=== PATIENT | male | born 1995 | race Caucasian/White ===

== ENCOUNTER → 2017-02-07 | Outpatient (CLI) | payer OTHER ==
--- NOTE | 2017-02-08 09:33 | Diagnostic Imaging Report ---
PROCEDURE: MR imaging left lower extremity without contrast. TECHNIQUE: Multiplanar, multisequence non contrast enhanced MR imaging of the left lower extremity was accomplished. INDICATION: History of fracture of the left foot two years ago. Now having a lump along the top aspect of the foot at the site of marker. EXAMINATION: MRI of the left foot without contrast 02/07/2017. FINDINGS: Multiplanar multisequence MRI of the left foot is performed. There is a marker at the site of concern. This overlies the proximal first and second metatarsal interspace. Underlying the marker there is a large cystic collection difficult to measure due to its extent. Its largest dorsal component measures 1.3 x 3.0 x 1.7 cm in size and lies along the dorsum of the foot immediately inferior to the marker. This appears to then extend proximally possibly connecting with cystic changes in the interspace between the medial and mid cuneiforms and the adjacent first and second metatarsals. A large complex cystic area is then noted towards the plantar aspect of the foot underlying these tarsal/ metatarsal joint spaces. This area measures approximately 3.2 x 2.5 x 2.0 cm. A second similar lesion which likely is contiguous with this larger focus is noted more medially within the foot immediately plantar to the proximal aspect of the first metatarsal. This measures 1.9 cm in greatest dimension. All of these lesions contain multiple internal septations but are predominantly T2 hyperintense and T1 isointense to muscle. These appear to surround the Lisfranc ligament, but the ligament itself is intact. There may be mild subchondral cystic change involving the base of the second metatarsal with edema in the base of the second metatarsal and first metatarsal. Mild edema is seen in the mid first metatarsal as well. There is edema within the medial most and mid cuneiforms. The remaining visualized osseous structures appear unremarkable. Visualized tendons are intact. IMPRESSION: Nonspecific complex septated cystic collection at the site of concern which appears to be centered at the first and second tarsometatarsal joint spaces. This most likely represents one large contiguous lesion with multiple internal septations. This is nonspecific at this time. This could represent a large complex ganglion with a giant cell tumor or nerve sheath tumor/neurofibroma not excluded. Given possible involvement of the adjacent osseous structures and edema, postcontrast imaging is recommended for further characterization and to help exclude a more aggressive lesion. Dictated by: Dictated on workstation # [id number]
== END ==
LOC: RAD 14:00
PROVIDERS: ATTEND Podiatrist Foot & Ankle Surgery
DX: M79.9 Soft tissue disorder, unspecified (principal)

== ENCOUNTER 2017-04-17 10:44 | Outpatient (CLI) | payer OTHER ==
[~2017-04-17] VITALS: Ht 175.3 cm; Wt 88.6 kg
[2017-04-17 10:57] VITALS: BP 114/74
== END 2017-04-17 13:55 ==
LOC: PREOP 10:44
PROVIDERS: ATTEND Podiatrist Foot & Ankle Surgery
DX: Z01.818 Encounter for other preprocedural examination (principal); Z11.2 Encounter for screening for other bacterial diseases; L98.9 Disorder of the skin and subcutaneous tissue, unspecified
CPT/HCPCS: 87081

== ENCOUNTER 2017-05-10 10:45 | Day surgery (SDC) | payer OTHER ==
[~2017-05-10] VITALS: Ht 175.3 cm; Wt 88.6 kg
[2017-05-10] MEDS ORDERED: ceFAZolin 1,000 MG (ANCEF) VIAL ONE (10:47)
[2017-05-10] MEDS ORDERED: NS (IVPB) 50 ML ONE (10:47)
[2017-05-10] MEDS ORDERED: CATHETER FLUSH 10 ML SYR IV PRN (11:00)
[2017-05-10] MEDS ORDERED: ceFAZolin 1 GM/NS 50 ML IVPB IV ONE ×2 (11:00)
[2017-05-10 11:16] VITALS: BP 126/81
[2017-05-10] MEDS ORDERED: BUPIVACAINE 0.5% 30 ML (SENSORCAINE) VIAL ONE (12:31)
[2017-05-10] MEDS ORDERED: LIDOCAINE 1% INJ 20 ML (XYLOCAINE) VIAL ONE (12:31)
--- NOTE | 2017-05-10 12:50 | Progress Note-Pre Operative ---
Pre-Operative Progress Note H&P Reviewed The H&P was reviewed, patient examined and no changes noted. Date Seen by Provider: May 10, 2017 Time Seen by Provider: 12:49 Date H&P Reviewed: May 10, 2017 Time H&P Reviewed: 12:50 Pre-Operative Diagnosis: Soft Tissue Mass left foot SHRAVAN OBRIEN DPM May 10, 2017 12:50 pm
[2017-05-10] MEDS ORDERED: fentaNYL INJECTION 100 MCG/2 ML AMP ONE (12:56)
[2017-05-10] MEDS ORDERED: proPOfol 200 MG/20 ML (DIPRIVAN) VIAL IV ONE ×2 (12:56→13:17)
[2017-05-10] MEDS ORDERED: MIDAZOLAM 2 MG/2 ML (VERSED) VIAL ONE (12:57)
[2017-05-10] MEDS ORDERED: SEVOFLURANE (ULTANE) 15 ML INHAL SOLN ONE ×9 (13:02→14:35)
[2017-05-10] MEDS ORDERED: ONDANSETRON 4 MG/2 ML (SDV) Z0FRAN ONE (13:03)
[2017-05-10] MEDS ORDERED: DEXAMETHASONE PF 10 MG/ML (DECADRON) VIAL ONE (13:03)
[2017-05-10] MEDS ORDERED: LACTATED RINGERS 1,000 ML IV PRN (13:08)
[2017-05-10] MEDS ORDERED: LACTATED RINGERS 1,000 ML IV ONE (14:13)
--- NOTE | 2017-05-10 15:13 | Progress Note-Post Operative ---
Post-Operative Progess Note Surgeon (s)/Member Services Coordinator (s) Surgeon SHRAVAN OBRIEN DPM Member Services Coordinator: none Pre-Operative Diagnosis Soft Tissue Mass left foot Post-Operative Diagnosis same Procedure & Operative Findings Date of Procedure 05/10/17 Procedure Performed/Findings Excision of Soft tissue lesions left Anesthesia Type General Estimated Blood Loss Estimated blood loss (mL): Minimal Specimens/Packing Specimens Removed two from the dorsum and medial left foot, soft tissue. Packing: none SHRAVAN OBRIEN DPM May 10, 2017 3:13 pm
[2017-05-10] MEDS ORDERED: morphine INJ 10 MG/ML 1ML (SYR OR VIAL) IVP PRN (15:15)
[2017-05-10] MEDS ORDERED: ONDANSETRON 4 MG/2 ML (SDV) Z0FRAN IVP PRN ×2 (15:15→15:30)
[2017-05-10] MEDS ORDERED: LACTATED RINGERS 1,000 ML IV SCH (15:18)
[2017-05-10] MEDS ORDERED: HYDR-3812 PO (15:21)
[2017-05-10] MEDS ORDERED: HYDROcodone/APAP 5 MG/325 MG (LORTAB) TAB PO PRN (15:30)
[2017-05-10] MEDS ORDERED: HYDROcodone/APAP 5 MG/325 MG (LORTAB) TAB ONE (15:52)
[2017-05-10 15:55] VITALS: BP 131/99
[2017-05-10 16:25] VITALS: BP 128/91
[2017-05-10 16:55] VITALS: BP 124/80
[2017-05-10 17:05] VITALS: BP 124/80
--- NOTE | 2017-05-12 09:31 | OPERATIVE REPORT ---
PROCEDURE PHYSICIAN: RESHMA OBRIEN DATE OF PROCEDURE: 05/10/2017 SURGEON: Reshma Obrien DPM. PREOPERATIVE DIAGNOSIS: Soft tissue lesions of the left foot. POSTOPERATIVE DIAGNOSIS: Soft tissue lesions of the left foot. PROCEDURE: Excision of soft tissue lesions, left foot x 2. WOUND CLASS: Clean. ANESTHESIA: General. HEMOSTASIS: Pneumatic thigh tourniquet at 250 mmHg. INDICATION: This 21-year-old male presents complaining of painful growth to the top and bottom of the left foot. Conservative therapy is met with unsatisfactory results and the patient is agreeable to surgical intervention after risk and complications were discussed at length. No guarantees were extended to the patient and he is willing to proceed. PROCEDURE: The patient was brought back to the operating table, placed in a secure, supine position. General anesthetic was induced. Appropriate timeout was performed. A pneumatic thigh tourniquet was placed on the left lower extremity over several layers of padding. The left foot was then prepped and draped in normal sterile manner. The left foot was then elevated and allowed to exsanguinate after which the tourniquet was inflated to 250 mmHg. Attention was then directed to the dorsal aspect of the left foot where a 7 cm longitudinal linear incision was created overlying the medial cuneiform and into the first intermetatarsal space. The incision was deepened in the same plane with great care to identify and retract all vital neurovascular structures. Only necessary blood vessels were cauterized as encountered. Careful soft tissue dissection was carried out to deep fascia. The peroneal nerve was retracted laterally. A white lobulated lesion was identified to the first intermetatarsal space and then extending into the cuneiform area. Careful dissection was carried out and extended into the plantar aspect of the first intermetatarsal area. The lesion measured approximately a 3 cm in length. The wound was flushed with copious amounts of normal saline. No other abnormalities were identified at this point. A second incision was created to the medial aspect of the first metatarsal base where a 5 cm longitudinal linear incision was created. Blunt dissection was carried out through the deep fascia. The abductor muscle belly was dissected plantarly and below this was a white lobulated mass that was dissected free of its soft tissue attachments just inferior to the first metatarsal base and it measured 2 cm in length. The tourniquet was released. No active bleeders were identified to either wound. The wounds were flushed with copious amounts of normal saline and closure was then performed in layers. Deep closure was performed with 3-0 Vicryl, superficial with 4-0 Vicryl, skin closure with 4-0 Prolene in a horizontal mattress type stitch. Postoperative injection consisted of 20 mL of 0.5% Marcaine injected in a local infusion to the surgical sites. Postoperative dressing consisted of Betadine soaked Adaptic, sterile 4 x 4, sterile Kerlix, all secured with a Coban wrap. The patient tolerated the anesthesia and procedure well and was transported from the operating room to the recovery area with vital signs stable and vascular status intact to all digits of the left foot. Postoperative instructions were dispensed to the patient. He is to be nonweightbearing on the left foot. We will see the patient back in the office in 10 days period of time or sooner if necessary. Job ID: [id number] Dictated Date: 05/10/2017 15:18:23 Air Filler Date: 05/12/2017 09:16:01 / julissa
== END 2017-05-10 17:05 | disposition home or self-care (01) ==
LOC: SDC 10:45
PROVIDERS: ATTEND Podiatrist Foot & Ankle Surgery
DX: D16.32 Benign neoplasm of short bones of left lower limb (principal)
CPT/HCPCS: 88305

== ENCOUNTER 2021-10-06 20:16 | Emergency (ER) | payer BC, OTHER ==
[~2021-10-06] VITALS: Ht 175 cm; Wt 93.0 kg
[~2021-10-06 20:16] MED LIST: ACHD5005 PO
[2021-10-06] MEDS ORDERED: ONDA4TAB11 PO (20:45)
[2021-10-06] MEDS ORDERED: LIDOCAINE 2% VISCOUS 15 ML UDC PO ONE (20:45)
[2021-10-06] MEDS ORDERED: ANTACID SUSP 30 ML UDC (MYLANTA) PO ONE (20:45)
[2021-10-06] MEDS ORDERED: KETOROLAC 30 MG/ML VIAL IVP ONE (20:45)
[2021-10-06] MEDS ORDERED: PANTOPRAZOLE 40 MG (PROTONIX) VIAL IV ONE (20:45)
[2021-10-06] MEDS ORDERED: ONDANSETRON 4 MG/2 ML (SDV) Z0FRAN IVP ONE (20:45)
--- NOTE | 2021-10-06 20:45 | ED GI ---
General Chief Complaint: Abdominal/GI Problems Stated Complaint: ABD PAIN Source of Information: Patient Exam Limitations: No Limitations History of Present Illness Date Seen by Provider: Oct 06, 2021 Time Seen by Provider: 20:16 Initial Comments Patient ER by private conveyance from home with chief complaint of epigastric brayden pain since about 4:00 when he started having some discomfort nausea vomiting. About a 7 out of 10 now. No previous history of surgery or trauma. He ate a homemade tuna sandwich at noon. Nobody else ate it with him. Started getting sick and then started vomiting copiously after 4. Not having any nausea now. Has not taken anything for the pain. Just does not feel well. No diarrhe a. No significant medical history. No fevers chills cough shortness of air. Allergies and Home Medications Allergies Coded Allergies: No Known Drug Allergies (Unverified , 04/17/17) Patient Home Medication List Home Medication List Reviewed: Yes Hydrocodone Bit/Acetaminophen (Lortab 5 Mg Tablet) 1 Each Tablet, 1-2 TAB PO Q4-6HR PRN for PAIN Prescribed by: SHRAVAN OBRIEN on 05/10/17 1521 Ondansetron (Ondansetron Odt) 4 Mg Tab.rapdis, 4-8 MG PO Q6H PRN for NAUSEA/VOMITING Prescribed by: VIOLETA MORENO on 10/06/212044 Review of Systems Review of Systems Constitutional: No chills, No fever, No malaise EENTM: No Blurred Vision, No Double Vision Respiratory: Denies Cough, Denies Shortness of Air Cardiovascular: Denies Chest Pain, Denies Lightheadedness Gastrointestinal: See HPI, Abdominal Pain; Denies Constipated, Denies Diarrhea; Nausea, Poor Fluid Intake, Vomiting Genitourinary: Denies Burning, Denies Discharge Musculoskeletal: No back pain, No joint pain Skin: No pruritus, No rash Psychiatric/Neurological: Denies Headache, Denies Numbness All Other Systems Reviewed Negative Unless Noted: Yes Past Frhlhsl-Nbmmuj-Tihqzy Hx Patient Social History Tobacco Use?: No Use of E-Cig and/or Vaping dev: No Seasonal Allergies Seasonal Allergies: No Past Medical History Reproductive Disorders: No Sexually Transmitted Disease: No HIV/AIDS: No Loss of Vision: Denies Hearing Impairment: Denies Anxiety Adverse Reaction/Blood Tranf: No (N/A) Physical Exam Vital Signs Vital Signs - First Documented 10/06/21 20:23 Temp 36.5 Pulse 59 Resp 16 B/P (MAP) 144/107 (119) Pulse Ox 97 O2 Delivery Room Air Capillary Refill : Height/Weight/BMI Height: 5'9.00" Weight: 195lbs. 4.0oz. [id number]; 28.8 BMI Method: General Appearance: WD/WN, no apparent distress HEENT: PERRL/EOMI, TMs normal, pharynx normal Neck: full range of motion, normal inspection Respiratory: lungs clear, normal breath sounds, no respiratory distress, no accessory muscle use Cardiovascular: normal peripheral pulses, regular rate, rhythm Gastrointestinal: normal bowel sounds, soft, no organomegaly, tenderness (Epigastric), other (No mesenteric signs negative Rovsing or McBurney's point rebound tenderness) Extremities: normal range of motion, normal inspection, normal capillary refill Neurologic/Psychiatric: alert, normal mood/affect, oriented x 3 Skin: normal color, warm/dry Progress/Results/Core Measures Results/Orders Lab Results Laboratory Tests Test 10/06/21 20:25 10/06/21 20:55 Range/Units Urine Color YELLOW Urine Clarity CLEAR Urine pH 6.0 5-9 Urine Specific [place] >=1.030 1.016-1.022 Urine Protein NEGATIVE NEGATIVE Urine Glucose (UA) NEGATIVE NEGATIVE Urine Ketones 3+ H NEGATIVE Urine Nitrite NEGATIVE NEGATIVE Urine Bilirubin NEGATIVE NEGATIVE Urine Urobilinogen 0.2 < = 1.0 MG/DL Urine Leukocyte Esterase NEGATIVE NEGATIVE Urine RBC (Auto) NEGATIVE NEGATIVE Urine RBC NONE /HPF Urine WBC NONE /HPF Urine Crystals PRESENT H /LPF Urine Amorphous Sediment FEW RACIEL URATES H /LPF Urine Bacteria NEGATIVE /HPF Urine Casts NONE /LPF Urine Mucus NEGATIVE /LPF Urine Culture Indicated NO White Blood Count 10.6 4.3-11.0 10^3/uL Red Blood Count 5.63 H 4.30-5.52 10^6/uL Hemoglobin 16.5 13.3-17.7 g/dL Hematocrit 48 40-54 % Mean Corpuscular Volume 85 80-99 fL Mean Corpuscular Hemoglobin 29 25-34 pg Mean Corpuscular Hemoglobin Concent 35 32-36 g/dL Red Cell Distribution Width 11.9 10.0-14.5 % Platelet Count 312 130-400 10^3/uL Mean Platelet Volume 9.7 9.0-12.2 fL Immature Granulocyte % (Auto) 0 % Neutrophils (%) (Auto) 89 H 42-75 % Lymphocytes (%) (Auto) 7 L 12-44 % Monocytes (%) (Auto) 4 0-12 % Eosinophils (%) (Auto) 0 0-10 % Basophils (%) (Auto) 0 0-10 % Neutrophils # (Auto) 9.4 H 1.8-7.8 10^3/uL Lymphocytes # (Auto) 0.7 L 1.0-4.0 10^3/uL Monocytes # (Auto) 0.4 0.0-1.0 10^3/uL Eosinophils # (Auto) 0.0 0.0-0.3 10^3/uL Basophils # (Auto) 0.0 0.0-0.1 10^3/uL Immature Granulocyte # (Auto) 0.0 0.0-0.1 10^3/uL Sodium Level 137 135-145 MMOL/L Potassium Level 3.4 L 3.6-5.0 MMOL/L Chloride Level 102 98-107 MMOL/L Carbon Dioxide Level 20 L 21-32 MMOL/L Anion Gap 15 H 5-14 MMOL/L Blood Urea Nitrogen 21 H 7-18 MG/DL Creatinine 1.02 0.60-1.30 MG/DL Estimat Glomerular Filtration Rate 88 BUN/Creatinine Ratio 21 Glucose Level 111 H 70-105 MG/DL Calcium Level 9.3 8.5-10.1 MG/DL Corrected Calcium 8.5-10.1 MG/DL Total Bilirubin 1.4 H 0.1-1.0 MG/DL Aspartate Amino Transf (AST/SGOT) 28 5-34 U/L Alanine Aminotransferase (ALT/SGPT) 41 0-55 U/L Alkaline Phosphatase 43 40-136 U/L Total Protein 7.8 6.4-8.2 GM/DL Albumin 4.9 H 3.2-4.5 GM/DL Lipase 19 8-78 U/L My Orders Orders - VIOLETA MORENO Ketorolac Injection (Toradol Injection) (10/06/21 20:45) Ondansetron Injection (Zofran Injectio (10/06/21 20:45) Pantoprazole Injection (Protonix Injecti (10/06/21 20:45) Lidocaine 2% Viscous 15 Ml (Xylocaine Vi (10/06/21 20:45) Antacid Suspension (Mylanta Suspension (10/06/21 20:45) Ed Iv/Invasive Line Start (10/06/21 20:46) Ns Iv 1000 Ml (Sodium Chloride 0.9%) (10/06/21 21:00) Cbc With Automated Diff (10/06/21 21:28) Comprehensive Metabolic Panel (10/06/21 21:28) Lipase (10/06/21 21:28) Ua Culture If Indicated (10/06/21 21:28) Morphine Injection (Morphine Injection (10/06/21 21:28) Manual Differential (10/06/21 20:55) Medications Given in ED Current Medications Medications Dose Ordered Sig/Yodit Route Start Time Stop Time Status Last Admin Dose Admin Al Hydrox/Mg Hydrox/Simethicone 30 ml ONCE ONCE PO 10/06/21 20:45 10/06/21 20:46 DC 10/06/21 20:56 30 ML Ketorolac Tromethamine 30 mg ONCE ONCE IVP 10/06/21 20:45 10/06/21 20:46 DC 10/06/21 20:57 30 MG Lidocaine HCl 15 ml ONCE ONCE PO 10/06/21 20:45 10/06/21 20:46 DC 10/06/21 20:56 15 ML Ondansetron HCl 4 mg ONCE ONCE IVP 10/06/21 20:45 10/06/21 20:46 DC 10/06/21 20:57 4 MG Pantoprazole 40 mg ONCE ONCE IV 10/06/21 20:45 10/06/21 20:46 DC 10/06/21 20:56 40 MG Vital Signs/I&O 10/06/21 20:23 Temp 36.5 Pulse 59 Resp 16 B/P (MAP) 144/107 (119) Pulse Ox 97 O2 Delivery Room Air Progress Progress Note #1: Time: 20:41 Progress Note Aseptic vital signs with nonacute abdomen. GI cocktail, Toradol IV and Protonix. Discussed doing some labs versus conservative symptomatic management he is okay with the latter. Progress Note #2: Time: 21:29 Progress Note After Toradol, Zofran and a liter of fluids the patient is not nauseated and is reclining in the bed now however he states he does not feel any better. We will give him for morphine and check some labs. Progress Note #3: Time: 22:01 Progress Note Patient's fluids are done he is asymptomatic and ready to go home. Departure Impression Primary Impression: Gastroenteritis due to food toxin Disposition: HOME, SELF-CARE Condition: Stable Departure-Patient Inst. Decision time for Depature: 21:53 Referrals: MAEGAN OROPEZA MD (PCP/Family) Primary Care Physician Patient Instructions: [id number] Add. Discharge Instructions: Drink lots of fluids. Stick to a bland liquid diet for today and tomorrow. As you are symptoms improve you may advance your diet. Zofran 1 tablet under the tongue every 6 hours as necessary for nausea or vomiting. If you develop diarrhea then let it go for at least 1 day. Imodium 4 mg followed by 2 mg every 4 hours afterwards if you are still having loose watery stools for diarrhea that persist for more than 24 hours. Return to the ER or your primary care doctor for symptoms that do not improve in 2 to 3 days or significantly worsening symptoms. All discharge instructions reviewed with patient and/or family. Voiced understanding. Scripts Ondansetron (Ondansetron Odt) 4 Mg Tab.rapdis 4-8 MG PO Q6H PRN for NAUSEA/VOMITING, #15 TAB 0 Refills Prov: VIOLETA MORENO 10/06/21 Work/School Note: Work Release Form Date Seen in the Emergency Department: Oct 06, 2021 Return to Work: Oct 09, 2021 Restrictions: No Restrictions VIOLETA MORENO Oct 06, 2021 20:45
[2021-10-06] MEDS ORDERED: NS IV 1000 ML 1,000 ML IV SCH (21:00)
[2021-10-06] MEDS ORDERED: morphine INJ 10 MG/ML 1ML (SYR OR VIAL) IVP STA (21:28)
[2021-10-06 21:36] LABS: BASOPHILS % (AUTO) 0 % (0-10); EOSINOPHILS % (AUTO) 0 % (0-10); HEMATOCRIT 48 % (40-54); HEMOGLOBIN 16.5 g/dL (13.3-17.7); LYMPHOCYTES # (AUTO) 0.7 10^3/uL (1.0-4.0); LYMPHOCYTES % (AUTO) 7 % (12-44); MEAN CORPUSCULAR HEMOGLOBIN 29 pg (25-34); MEAN CORPUSCULAR HGB CONC 35 g/dL (32-36); MEAN CORPUSCULAR VOLUME 85 fL (80-99); MEAN PLATELET VOLUME 9.7 fL (9.0-12.2); MONOCYTES # (AUTO) 0.4 10^3/uL (0.0-1.0); MONOCYTES % (AUTO) 4 % (0-12); NEUTROPHILS # (AUTO) 9.4 10^3/uL (1.8-7.8); NEUTROPHILS % (AUTO) 89 % (42-75); PLATELET COUNT 312 10^3/uL (130-400); WHITE BLOOD COUNT 10.6 10^3/uL (4.3-11.0)
[2021-10-06 21:39] LABS: BILIRUBIN,URINE NEGATIVE (NEGATIVE); CLARITY,URINE CLEAR; COLOR,URINE YELLOW; GLUCOSE, URINE (UA) NEGATIVE (NEGATIVE); KETONES,URINE 3+ (NEGATIVE); LEUKOCYTE ESTERASE ,URINE NEGATIVE (NEGATIVE); NITRITE,URINE NEGATIVE (NEGATIVE); PROTEIN,URINE NEGATIVE (NEGATIVE)
[2021-10-06 21:50] LABS: ALBUMIN 4.9 GM/DL (3.2-4.5); CHLORIDE 102 MMOL/L (98-107); POTASSIUM 3.4 MMOL/L (3.6-5.0); SODIUM 137 MMOL/L (135-145)
[2021-10-06 21:51] LABS: CALCIUM 9.3 MG/DL (8.5-10.1)
[2021-10-06 21:52] LABS: GLUCOSE 111 MG/DL (70-105); TOTAL PROTEIN 7.8 GM/DL (6.4-8.2)
[2021-10-06 21:53] LABS: AMORPHOUS SEDIMENT,UR FEW AMOR URATES /LPF; BACTERIA,URINE NEGATIVE /HPF
[2021-10-06 21:53] LABS: CARBON DIOXIDE 20 MMOL/L (21-32)
[2021-10-06 21:54] LABS: BILIRUBIN,TOTAL 1.4 MG/DL (0.1-1.0)
[2021-10-06 21:56] LABS: ALKALINE PHOSPHATASE 43 U/L (40-136); CREATININE SERUM 1.02 MG/DL (0.60-1.30); GFR ESTIMATED 88
[2021-10-06 21:57] LABS: BUN/CREATININE RATIO 21
[2021-10-06 21:59] LABS: ALANINE AMINOTRANSFERASE 41 U/L (0-55); LIPASE 19 U/L (8-78)
[2021-10-06 22:12] LABS: LYMPHOCYTES % (MANUAL) 4 %; MONOCYTES % (MANUAL) 2 %; NEUTROPHILS % (MANUAL) 94 %; RBC MORPH NORMAL
[2021-10-06 22:20] VITALS: BP 121/81
[2021-10-11] MEDS ORDERED: ACHD5005 PO (11:57)
[2021-10-11] MEDS ORDERED: HYDR-3817 PO (13:09)
== END 2021-10-06 22:21 | disposition home or self-care (01) ==
LOC: EDUNIT# 20:16 → ER 20:18
DX: A05.9 Bacterial foodborne intoxication, unspecified (principal)
CPT/HCPCS: 36415; 80053; 81000; 83690; 85007; 85027

== ENCOUNTER 2021-10-07 10:48 | Emergency (ER) | payer BC ==
[~2021-10-07] VITALS: Ht 177.8 cm; Wt 95.3 kg
[~2021-10-07 10:48] MED LIST changes: +ONDA4TAB11 PO
--- NOTE | 2021-10-07 11:53 | ED GU-Male ---
General Chief Complaint: - Reproductive Stated Complaint: DIFFCULTY URINATING, ABD PRESSURE History of Present Illness Date Seen by Provider: Oct 07, 2021 Time Seen by Provider: 11:45 Initial Comments Patient is a 26-year-old male who presents to the emergency department today with a chief complaint of inability to urinate. Patient was seen in the emergency department last night and diagnosed with "gastroenteritis". He was sent home and states that he noticed at about 10:00 this morning he was having an urge to urinate but just could not. He denies any constipation symptoms but has not had a bowel movement today. No testicular pain, penile discharge, scrotal swelling. No fevers or chills. He is having lower abdominal "pressure". He has never had anything like this before. Pain in his belly has moved from the upper abdomen down to the lower abdomen. He has not had any d iarrhea. No black or bloody stools. No sick contacts at home. He has not filled his prescribed nausea medications from his visit during the night. Does not have any lightheadedness or dizziness. No concerns for sexually transmitted infection. All other review of systems reviewed and negative except as stated. Timing/Duration: this morning Severity/Quality: moderate Location: suprapubic Radiation: none Activities at Onset: none Associated Symptoms: abdominal pain Allergies and Home Medications Allergies Coded Allergies: No Known Drug Allergies (Unverified , 04/17/17) Patient Home Medication List Home Medication List Reviewed: Yes Hydrocodone Bit/Acetaminophen (Lortab 5 Mg Tablet) 1 Each Tablet, 1-2 TAB PO Q4-6HR PRN for PAIN Prescribed by: SHRAVAN OBRIEN on 05/10/17 1521 Ondansetron (Ondansetron Odt) 4 Mg Tab.rapdis, 4-8 MG PO Q6H PRN for NAUSEA/VOMITING Prescribed by: VIOLETA MORENO on 10/06/212044 Review of Systems Review of Systems Constitutional: see HPI EENTM: no symptoms reported Respiratory: no symptoms reported Cardiovascular: no symptoms reported Gastrointestinal: abdominal pain Genitourinary: urgency Musculoskeletal: no symptoms reported Skin: no symptoms reported All Other Systemes Reviewed Negative Unless Noted: Yes Past Fsahump-Fifnxh-Ozkmvh Hx Immunizations Up To Date First/Initial COVID19 Vaccinat: MARCH 2021 Second COVID19 Vaccination [place]: MARCH 2021 Seasonal Allergies Seasonal Allergies: No Past Medical History Reproductive Disorders: No Sexually Transmitted Disease: No HIV/AIDS: No Loss of Vision: Denies Hearing Impairment: Denies Anxiety Adverse Reaction/Blood Tranf: No (N/A) Physical Exam Vital Signs Vital Signs - First Documented 10/07/21 11:33 Temp 36.3 Pulse 64 Resp 20 B/P (MAP) 136/95 (109) Pulse Ox 98 O2 Delivery Room Air Capillary Refill : Height, Weight, BMI Height: 5'9.00" Weight: 195lbs. 4.0oz. 88.947708fg; 30.00 BMI Method: General Appearance: WD/WN, no apparent distress Neck: normal inspection Cardiovascular: regular rate, rhythm Respiratory: lungs clear, normal breath sounds, no respiratory distress, no accessory muscle use Gastrointestinal: normal bowel sounds, tenderness (mild suprapubic tenderness without rebound, guarding or other peritoneal signs) Extremities: normal range of motion, non-tender, normal inspection Neurologic/Psychiatric: alert, normal mood/affect, oriented x 3 Skin: normal color, warm/dry Progress/Results/Core Measures Suspected Sepsis SIRS Temperature: Pulse: Respiratory Rate: Blood Pressure / Mean: Results/Orders Lab Results Laboratory Tests Test 10/07/21 12:35 Range/Units Urine Color ORANGE Urine Clarity CLEAR Urine pH 6.0 5-9 Urine Specific [place] >=1.030 1.016-1.022 Urine Protein NEGATIVE NEGATIVE Urine Glucose (UA) NEGATIVE NEGATIVE Urine Ketones 3+ H NEGATIVE Urine Nitrite NEGATIVE NEGATIVE Urine Bilirubin NEGATIVE NEGATIVE Urine Urobilinogen 0.2 < = 1.0 MG/DL Urine Leukocyte Esterase NEGATIVE NEGATIVE Urine RBC (Auto) NEGATIVE NEGATIVE Urine RBC NONE /HPF Urine WBC NONE /HPF Urine Squamous Epithelial Cells RARE /HPF Urine Crystals NONE /LPF Urine Bacteria NEGATIVE /HPF Urine Casts NONE /LPF Urine Mucus NEGATIVE /LPF Urine Culture Indicated NO My Orders Orders - REBEKAH HERNANDEZ MD Urinalysis (10/07/21 11:51) Bladder Scan (10/07/21 11:51) Vital Signs/I&O 10/07/21 11:33 Temp 36.3 Pulse 64 Resp 20 B/P (MAP) 136/95 (109) Pulse Ox 98 O2 Delivery Room Air Capillary Refill : Progress Note : Time: 14:06 Progress Note 26-year-old presents to the emergency department with a chief complaint of inability to urinate. Evaluation today includes bladder scan and repeat urinalysis. Patient was seen in the emergency department last night with gastroenteritis type picture. Bladder scan showed about 110 cc in the bladder, urinalysis is quite concentrated. His vital signs are stable. He has not picked up his nausea medications from the pharmacy yet. He is not having any orthostatic type symptoms. I have encouraged him to drink lots of fluids today and take his nausea medicines. Have also encouraged him to use some ughx-tyz-mcfyczt Pepcid to calm his stomach acid down. I have given him return precautions including if he becomes lightheaded or dizzy, has a passing out spell symptoms are not controlled with prescribed medications or any other emergent concerns that he come back to the emergency department. Both he and his verbalized understanding of the plan of care. All questions are sought and answered. Patient is stable for discharge. Departure Impression Primary Impression: Dehydration Disposition: 01 HOME, SELF-CARE Condition: Stable Departure-Patient Inst. Decision time for Depature: 14:11 Referrals: MAEGAN OROPEZA MD (PCP/Family) Primary Care Physician Patient Instructions: Dehydration, Adult ED Add. Discharge Instructions: Drink lots of fluids to stay well-hydrated. Use your nausea medications as prescribed to help keep down fluids. Do not take ibuprofen on an empty stomach. You can take some alba-arl-kytigjy Pepcid 20 mg, once daily for stomach upset. If you have worsening symptoms to include dizziness, lightheadedness, passing out spell, nausea and vomiting that are not controlled with your nausea medications, high fever or any other emergent concerning symptoms please come back to the emergency room for reevaluation. REBEKAH HERNANDEZ MD Oct 07, 2021 11:53
[2021-10-07 12:47] LABS: BILIRUBIN,URINE NEGATIVE (NEGATIVE); CLARITY,URINE CLEAR; COLOR,URINE ORANGE; GLUCOSE, URINE (UA) NEGATIVE (NEGATIVE); KETONES,URINE 3+ (NEGATIVE); LEUKOCYTE ESTERASE ,URINE NEGATIVE (NEGATIVE); NITRITE,URINE NEGATIVE (NEGATIVE); PROTEIN,URINE NEGATIVE (NEGATIVE)
[2021-10-07 13:46] LABS: BACTERIA,URINE NEGATIVE /HPF; SQUAMOUS EPITHELIAL CELL,UR RARE /HPF
[2021-10-07 14:23] VITALS: BP 136/95
[2021-10-11] MEDS ORDERED: ACHD5005 PO (11:57)
[2021-10-11] MEDS ORDERED: HYDR-3817 PO (13:09)
== END 2021-10-07 14:23 | disposition home or self-care (01) ==
LOC: EDUNIT# 10:48 → ER 10:49
DX: E86.0 Dehydration (principal)
CPT/HCPCS: 81000; 99283

== ENCOUNTER 2021-10-09 05:22 | Inpatient (IN) | payer BC ==
[~2021-10-09] VITALS: Ht 177 cm; Wt 91.0 kg
[2021-10-09] VITALS (10 sets, daily range): BP systolic 99–125; BP diastolic 64–85
[2021-10-09] MEDS ORDERED: LACTATED RINGERS 1,000 ML IV STA (05:43)
[2021-10-09] MEDS ORDERED: morphine INJ 10 MG/ML 1ML (SYR OR VIAL) IVP ONE (05:45)
[2021-10-09] MEDS ORDERED: ONDANSETRON 4 MG/2 ML (SDV) Z0FRAN IVP ONE ×2 (05:45→08:15)
--- NOTE | 2021-10-09 05:51 | ED Abdominal Pain ---
General Chief Complaint: Abdominal/GI Problems Stated Complaint: ABDOMINAL PAIN Source of Information: Patient Exam Limitations: No Limitations (GARCIA JONES MD) History of Present Illness Date Seen by Provider: Oct 09, 2021 Time Seen by Provider: 05:33 Initial Comments Here with report of diffuse abdominal pain, nausea and vomiting with limited stool that has worsened over the last 3 days. This is his 3rd visit for the same. He has received hydration and labs on previous 2 visits but no imaging. Tried fluids at home yesterday but was unable to keep anything down. Feels like nothing is passing through. Did enema this morning and had small stool that was dark. He has taken Pepto-Bismol for his GI distress though. Denies cough or runny nose. Has had Covid vaccination. No reports of fever. Reports decreased urination and feeling weak. Timing/Duration: 3-4 Days Severity/Quality: Moderate, Cramping Location: Generalized Abdomen Radiation: No Radiation Activities at Onset: None Modifying Factors: Improves With Defecating; Worsens With Eating Associated Symptoms: No Back Pain, No Chest Pain, No Fever/Chills; Fatigue, Nausea/Vomiting; No Shortness of Air, No Swelling/Mass in Abdomen; Weakness (GARCIA JONES MD) Allergies and Home Medications Allergies Coded Allergies: No Known Drug Allergies (Unverified , 04/17/17) Patient Home Medication List Home Medication List Reviewed: Yes (GARCIA JONES MD) Hydrocodone Bit/Acetaminophen (Lortab 5 Mg Tablet) 1 Each Tablet, 1-2 TAB PO Q4-6HR PRN for PAIN Prescribed by: SHRAVAN OBRIEN on 05/10/17 1521 Ondansetron (Ondansetron Odt) 4 Mg Tab.rapdis, 4-8 MG PO Q6H PRN for NAUSEA/VOMITING Prescribed by: VIOLETA MORENO on 10/06/212044 Review of Systems Review of Systems Constitutional: see HPI; No chills, No fever EENTM: No Nose Congestion, No Throat Pain Respiratory: Denies Cough, Denies Shortness of Air Cardiovascular: Denies Chest Pain, Denies Edema Gastrointestinal: Abdominal Pain, Nausea, Vomiting Genitourinary: Denies Hematuria, Denies Pain; Other (Decreased amount) Musculoskeletal: No back pain, No muscle pain Skin: no symptoms reported Psychiatric/Neurological: No Symptoms Reported (GARCIA JONES MD) All Other Systems Reviewed Negative Unless Noted: Yes (GARCIA JONES MD) Past Puplynn-Yuzovo-Mtfnyg Hx Patient Social History Tobacco Use?: No Substance use?: No Alcohol Use?: Yes Alcohol type: Hard Liquor Alcohol Frequency: Daily Pt feels they are or have been: No (GARCIA JONES MD) Immunizations Up To Date Influenza Vaccine Up-to-Date: Yes; Up-to-Date First/Initial COVID19 Vaccinat: MARCH 2021 Second COVID19 Vaccination [place]: MARCH 2021 COVID19 Vaccine Clinical Services Assistant: MODERNA (GARCIA JONES MD) Seasonal Allergies Seasonal Allergies: No (GARCIA JONES MD) Past Medical History Surgeries: No Respiratory: No Cardiac: No Neurological: No Reproductive Disorders: No Sexually Transmitted Disease: No HIV/AIDS: No Loss of Vision: Denies Hearing Impairment: Denies Psychosocial: Yes Anxiety Adverse Reaction/Blood Tranf: No (N/A) (GARCIA JONES MD) Family Medical History Reviewed Nursing Family Hx (GARCIA JONES MD) Physical Exam Vital Signs Vital Signs - First Documented 10/09/21 05:28 Temp 37.0 Pulse 120 Resp 20 B/P (MAP) 134/96 (109) Pulse Ox 95 O2 Delivery Room Air (FLAKO APARICIO MD) Vital Signs Capillary Refill : (GARCIA JONES MD) Height/Weight/BMI Height: 5'9.00" Weight: 195lbs. 4.0oz. 88.978244lb; 30.00 BMI Method: General Appearance: WD/WN, mild distress HEENT: PERRL/EOMI, pharynx normal Neck: full range of motion, supple Respiratory: lungs clear, normal breath sounds Cardiovascular: no murmur, tachycardia Gastrointestinal: soft, abnormal bowel sounds (Hypoactive); No guarding, No rebound; tenderness (Diffusely) Extremities: non-tender, normal inspection Back: normal inspection, no CVA tenderness, no vertebral tenderness Neurologic/Psychiatric: alert, oriented x 3 Skin: normal color, warm/dry (GARCIA JONES MD) Focused Exam Lactate Level 10/09/21 08:05: (FLAKO APARICIO MD) Lactic Acid Level Laboratory Tests Test 10/09/21 08:05 (FLAKO APARICIO MD) Progress/Results/Core Measures Results/Orders Lab Results Laboratory Tests Test 10/09/21 05:35 10/09/21 08:05 Range/Units White Blood Count 19.4 H 4.3-11.0 10^3/uL Red Blood Count 6.23 H 4.30-5.52 10^6/uL Hemoglobin 18.3 H 13.3-17.7 g/dL Hematocrit 53 40-54 % Mean Corpuscular Volume 85 80-99 fL Mean Corpuscular Hemoglobin 29 25-34 pg Mean Corpuscular Hemoglobin Concent 34 32-36 g/dL Red Cell Distribution Width 12.3 10.0-14.5 % Platelet Count 334 130-400 10^3/uL Mean Platelet Volume 9.3 9.0-12.2 fL Immature Granulocyte % (Auto) 1 % Neutrophils (%) (Auto) 83 H 42-75 % Lymphocytes (%) (Auto) 7 L 12-44 % Monocytes (%) (Auto) 9 0-12 % Eosinophils (%) (Auto) 0 0-10 % Basophils (%) (Auto) 0 0-10 % Neutrophils # (Auto) 16.1 H 1.8-7.8 10^3/uL Lymphocytes # (Auto) 1.3 1.0-4.0 10^3/uL Monocytes # (Auto) 1.8 H 0.0-1.0 10^3/uL Eosinophils # (Auto) 0.0 0.0-0.3 10^3/uL Basophils # (Auto) 0.0 0.0-0.1 10^3/uL Immature Granulocyte # (Auto) 0.1 0.0-0.1 10^3/uL Neutrophils % (Manual) 81 % Lymphocytes % (Manual) 7 % Monocytes % (Manual) 4 % Band Neutrophils 8 % Urine Color YELLOW Urine Clarity CLEAR Urine pH 6.5 5-9 Urine Specific [place] 1.015 L 1.016-1.022 Urine Protein 1+ H NEGATIVE Urine Glucose (UA) NEGATIVE NEGATIVE Urine Ketones 3+ H NEGATIVE Urine Nitrite NEGATIVE NEGATIVE Urine Bilirubin 1+ H NEGATIVE Urine Urobilinogen 1.0 < = 1.0 MG/DL Urine Leukocyte Esterase NEGATIVE NEGATIVE Urine RBC (Auto) TRACE-I H NEGATIVE Urine RBC RARE /HPF Urine WBC NONE /HPF Urine Crystals NONE /LPF Urine Bacteria TRACE /HPF Urine Casts NONE /LPF Urine Mucus NEGATIVE /LPF Urine Culture Indicated NO Sodium Level 134 L 135-145 MMOL/L Potassium Level 3.8 3.6-5.0 MMOL/L Chloride Level 98 98-107 MMOL/L Carbon Dioxide Level 23 21-32 MMOL/L Anion Gap 13 5-14 MMOL/L Blood Urea Nitrogen 6 L 7-18 MG/DL Creatinine 1.17 0.60-1.30 MG/DL Estimat Glomerular Filtration Rate 75 BUN/Creatinine Ratio 5 Glucose Level 140 H 70-105 MG/DL Calcium Level 9.9 8.5-10.1 MG/DL Corrected Calcium 9.5 8.5-10.1 MG/DL Magnesium Level 2.1 1.6-2.4 MG/DL Total Bilirubin 3.0 H 0.1-1.0 MG/DL Aspartate Amino Transf (AST/SGOT) 17 5-34 U/L Alanine Aminotransferase (ALT/SGPT) 27 0-55 U/L Alkaline Phosphatase 49 40-136 U/L C-Reactive Protein High Sensitivity 23.38 H 0.00-0.50 MG/DL Total Protein 8.2 6.4-8.2 GM/DL Albumin 4.5 3.2-4.5 GM/DL (FLAKO APARICIO MD) My Orders Orders - FLAKO APARICIO MD Ct Abdomen/Pelvis W (10/09/21 06:13) Lactated Ringers (Lr 1000 Ml Iv Solution (10/09/21 06:15) Iohexol Injection (Omnipaque 350 Mg/Ml 1 (10/09/21 06:45) Received Contrast (Hold Metformin- Contr (10/09/21 06:45) Sodium Chloride Flush (Catheter Flush Sy (10/09/21 06:45) Ns (Ivpb) (Sodium Chloride 0.9% Ivpb Bag (10/09/21 06:45) Blood Culture (10/09/21 07:19) Vital Signs Adult Sepsis Patie Q15M (10/09/21 07:19) Remove Rings In Anticipation O (10/09/21 07:19) Lactic Acid Analyzer (10/09/21 07:19) Piperacillin Sodium/Tazobactam (Zosyn Vi (10/09/21 07:30) Ondansetron Injection (Zofran Injectio (10/09/21 08:15) Morphine Injection (Morphine Injection (10/09/21 08:07) Lactated Ringers (Lr 1000 Ml Iv Solution (10/09/21 08:30) (FLAKO APARICIO MD) Medications Given in ED Current Medications Medications Dose Ordered Sig/Yodit Route Start Time Stop Time Status Last Admin Dose Admin Iohexol 100 ml ONCE ONCE IV 10/09/21 06:45 10/09/21 06:46 DC 10/09/21 06:45 100 ML Lactated Ringer's 1,000 ml @ 0 mls/hr Q0M ONCE IV 10/09/21 06:15 10/09/21 06:16 DC 10/09/21 06:55 1,000 MLS/HR Morphine Sulfate 4 mg ONCE ONCE IVP 10/09/21 05:45 10/09/21 05:46 DC 10/09/21 05:50 4 MG Ondansetron HCl 4 mg ONCE ONCE IVP 10/09/21 05:45 10/09/21 05:46 DC 10/09/21 05:50 4 MG Sodium Chloride 10 ml NEEDED PRN IV 10/09/21 06:45 10/09/21 06:45 10 ML Sodium Chloride 100 ml ONCE ONCE IV 10/09/21 06:45 10/09/21 06:46 DC 10/09/21 06:45 80 ML (FLAKO APARICIO MD) Vital Signs/I&O 10/09/21 05:28 Temp 37.0 Pulse 120 Resp 20 B/P (MAP) 134/96 (109) Pulse Ox 95 O2 Delivery Room Air (FLAKO APARICIO MD) Progress Progress Note : Progress Note Seen and evaluated. IV, labs and UA ordered. LR 1 L bolus, Zofran 4 mg IV and morphine 4 mg IV. I have reviewed the chart from the previous 2 visits as well as labs and UA. I anticipate the need for CT scan given his progressing pain and persistence of symptoms would like to see creatinine 1st given his likely dehydration and concerns for renal dysfunction. 0600: Care transferred to Dr. Cody pending labs and and possible CT scan. Monitor patient. (GARCIA JONES MD) Progress Note : Time: 08:25 Progress Note Care of this patient was assumed from Dr. Jones at shift change. CT scan was reviewed and appendicitis with suspected perforation and abscess was detected. Blood cultures and lactic acid are being obtained due to suspected sepsis. Patient has received 2 L of LR so far. He will receive a 3rd L of LR which will provide 30 mL/kg of fluid boluses should he develop severe sepsis. Patient also seemed quite dehydrated with concentrated urine with 3+ ketones. Patient requests more morphine for pain control. Case was discussed with Dr. Awan who requested starting Zosyn and admitting with surgery anticipated in the near future. I have discussed the findings with the patient and admission orders have been written. Patient has also been notified of the incidental finding of pulmonary nodule. (FLAKO APARICIO MD) Diagnostic Imaging Diagonstic Imaging: CT Plain Films/CT/US/NM/MRI: abdomen, pelvis Comments CT scan reviewed by me and report reviewed. See report below: NAME: ALEX HAJI [facility] REC#: [id number] PT STATUS: REG ER : 1995 PHYSICIAN: FLAKO APARICIO MD ADMIT DATE: 10/09/21/ER Signed Date of Exam:10/09/21 CT ABDOMEN/PELVIS W PROCEDURE: CT abdomen and pelvis with contrast. TECHNIQUE: Multiple contiguous axial images were obtained through the abdomen and pelvis after administration of intravenous contrast. Auto Exposure Controls were utilized during the CT exam to meet ALARA standards for radiation dose reduction. All CT scans use one or more of the following dose optimizing techniques: automated exposure control, MA and/or KvP adjustment based on patient size and exam type or iterative reconstruction. DATE: October 09, 2021. COMPARISON: None. INDICATION: 26-year-old male, abdominal pain, nausea, vomiting. FINDINGS: The visualized portions of the lung bases are clear. The heart is not enlarged. There Is no pericardial effusion. There is diffuse fatty infiltration of the liver. The liver is normal in size and contour. There is no identified liver lesion. The main, right, and left portal veins are patent. The gallbladder is unremarkable. There is no intrahepatic or extrahepatic bile duct dilation. The main pancreatic duct is not abnormally dilated. Unremarkable appearance of the pancreatic parenchyma. The spleen is not enlarged. The adrenal glands are unremarkable. Unremarkable appearance of the renal parenchyma. The urinary collecting systems are not distended. There is no identified renal or ureteral stone. There is wall thickening of the right anterior aspect of the urinary bladder. There is adjacent inflammatory stranding. There is abnormal wall thickening of distal small bowel with mucosal enhancement. There is prominent adjacent inflammatory stranding. There are dilated fluid-filled segments of small bowel measuring up to 3.3 cm in diameter. The wall thickening of small bowel is most notable at the level of the distal ileum. There is a gas and air fluid-filled structure on axial image 80 measuring 4.8 x 3.9 cm in axial extent with internal areas of calcification. This is not definitely within a bowel segment. Portions of this area could relate to the appendix, especially the small calcification on axial image 74 which may relate to relate to an appendicolith. There is a small amount of free intraperitoneal air on axial image 81 which can be confirmed on coronal image 22. There is no sizable volume free fluid in the abdomen or pelvis. There is no identified abnormally enlarged lymph node meeting CT size criteria for adenopathy. There is no identified acute bony abnormality. IMPRESSION: CT ABDOMEN AND PELVIS. 1. Findings concerning for an appendicolith and acute appendicitis with adjacent focal fluid collection likely reflecting a developing abscess measuring approximately 4.8 x 3.9 cm in size. There is a small amount of adjacent free intraperitoneal air concerning for perforation of the appendix. 2. Prominent abnormal wall thickening of the distal small bowel in the region of the distal ileum with mucosal enhancement and adjacent inflammatory stranding likely relating to a nonspecific enteritis. There is dilation of the more proximal small bowel which does raise concern for a distal small bowel obstruction. This also could relate to a reactive ileus. 3. Subcentimeter pulmonary nodules. Dictated by: Dictated on workstation # [id number] Dict: 10/09/21 0654 Trans: 10/09/21746 [facility] [id number] Interpreted by: WENDY CASTRO MD Electronically signed by: WENDY CASTRO MD 10/09/21746 (FLAKO APARICIO MD) Departure Impression Primary Impression: Acute appendicitis Qualified Codes: K35.21 - Acute appendicitis with generalized peritonitis, with abscess Additional Impressions: Sepsis Qualified Codes: A41.9 - Sepsis, unspecified organism Pulmonary nodule Disposition: ADMITTED INPATIENT Condition: Stable Admissions Decision to Admit Reason: Admit from ER (Trauma) Decision to Admit/Date: Oct 09, 2021 Time/Decision to Admit Time: 07:18 (FLAKO APARICIO MD) Departure-Patient Inst. Referrals: MAEGAN OROPEZA MD (PCP/Family) Primary Care Physician Copy Copies To 1: MAEGAN OROPEAZ MD, TIMOTHY D MD Oct 09, 2021 05:51 FLAKO APARICIO MD Oct 09, 2021 08:31
[2021-10-09 05:55] LABS: BASOPHILS % (AUTO) 0 % (0-10); EOSINOPHILS % (AUTO) 0 % (0-10); HEMATOCRIT 53 % (40-54); HEMOGLOBIN 18.3 g/dL (13.3-17.7); LYMPHOCYTES # (AUTO) 1.3 10^3/uL (1.0-4.0); LYMPHOCYTES % (AUTO) 7 % (12-44); MEAN CORPUSCULAR HEMOGLOBIN 29 pg (25-34); MEAN CORPUSCULAR HGB CONC 34 g/dL (32-36); MEAN CORPUSCULAR VOLUME 85 fL (80-99); MEAN PLATELET VOLUME 9.3 fL (9.0-12.2); MONOCYTES # (AUTO) 1.8 10^3/uL (0.0-1.0); MONOCYTES % (AUTO) 9 % (0-12); NEUTROPHILS # (AUTO) 16.1 10^3/uL (1.8-7.8); NEUTROPHILS % (AUTO) 83 % (42-75); PLATELET COUNT 334 10^3/uL (130-400); WHITE BLOOD COUNT 19.4 10^3/uL (4.3-11.0)
[2021-10-09 05:57] LABS: ALBUMIN 4.5 GM/DL (3.2-4.5); BILIRUBIN,URINE 1+ (NEGATIVE); CLARITY,URINE CLEAR; COLOR,URINE YELLOW; GLUCOSE, URINE (UA) NEGATIVE (NEGATIVE); KETONES,URINE 3+ (NEGATIVE); LEUKOCYTE ESTERASE ,URINE NEGATIVE (NEGATIVE); NITRITE,URINE NEGATIVE (NEGATIVE); PH,URINE 6.5 (5-9); POTASSIUM 3.8 MMOL/L (3.6-5.0); PROTEIN,URINE 1+ (NEGATIVE)
[2021-10-09 05:58] LABS: CALCIUM 9.9 MG/DL (8.5-10.1)
[2021-10-09 06:00] LABS: TOTAL PROTEIN 8.2 GM/DL (6.4-8.2)
[2021-10-09 06:03] LABS: CREATININE SERUM 1.17 MG/DL (0.60-1.30)
[2021-10-09 06:06] LABS: MAGNESIUM 2.1 MG/DL (1.6-2.4)
[2021-10-09 06:11] LABS: BACTERIA,URINE TRACE /HPF; RBC,URINE RARE /HPF
[2021-10-09] MEDS ORDERED: LACTATED RINGERS 1,000 ML IV ONE ×2 (06:15→08:30)
[2021-10-09] MEDS ORDERED: NS 100 ML (IVPB) BAG IV ONE (06:45)
[2021-10-09] MEDS ORDERED: CATHETER FLUSH 10 ML SYR IV PRN ×2 (06:45→09:30)
[2021-10-09] MEDS ORDERED: HOLD METFORMIN - RECEIVED CONTRAST 20 ML VIAL IV SCH (06:45)
[2021-10-09] MEDS ORDERED: IOHEXOL 350 MG/ML 100 ML (OMNIPAQUE 350) VIAL IV ONE (06:45)
[2021-10-09 06:58] LABS: BAND NEUTROPHILS 8 %; LYMPHOCYTES % (MANUAL) 7 %; MONOCYTES % (MANUAL) 4 %; NEUTROPHILS % (MANUAL) 81 %
--- NOTE | 2021-10-09 07:04 | Diagnostic Imaging Report ---
PROCEDURE: CT abdomen and pelvis with contrast. TECHNIQUE: Multiple contiguous axial images were obtained through the abdomen and pelvis after administration of intravenous contrast. Auto Exposure Controls were utilized during the CT exam to meet ALARA standards for radiation dose reduction. All CT scans use one or more of the following dose optimizing techniques: automated exposure control, MA and/or KvP adjustment based on patient size and exam type or iterative reconstruction. DATE: October 09, 2021. COMPARISON: None. INDICATION: 26-year-old male, abdominal pain, nausea, vomiting. FINDINGS: The visualized portions of the lung bases are clear. The heart is not enlarged. There Is no pericardial effusion. There is diffuse fatty infiltration of the liver. The liver is normal in size and contour. There is no identified liver lesion. The main, right, and left portal veins are patent. The gallbladder is unremarkable. There is no intrahepatic or extrahepatic bile duct dilation. The main pancreatic duct is not abnormally dilated. Unremarkable appearance of the pancreatic parenchyma. The spleen is not enlarged. The adrenal glands are unremarkable. Unremarkable appearance of the renal parenchyma. The urinary collecting systems are not distended. There is no identified renal or ureteral stone. There is wall thickening of the right anterior aspect of the urinary bladder. There is adjacent inflammatory stranding. There is abnormal wall thickening of distal small bowel with mucosal enhancement. There is prominent adjacent inflammatory stranding. There are dilated fluid-filled segments of small bowel measuring up to 3.3 cm in diameter. The wall thickening of small bowel is most notable at the level of the distal ileum. There is a gas and air fluid-filled structure on axial image 80 measuring 4.8 x 3.9 cm in axial extent with internal areas of calcification. This is not definitely within a bowel segment. Portions of this area could relate to the appendix, especially the small calcification on axial image 74 which may relate to relate to an appendicolith. There is a small amount of free intraperitoneal air on axial image 81 which can be confirmed on coronal image 22. There is no sizable volume free fluid in the abdomen or pelvis. There is no identified abnormally enlarged lymph node meeting CT size criteria for adenopathy. There is no identified acute bony abnormality. IMPRESSION: CT ABDOMEN AND PELVIS. 1. Findings concerning for an appendicolith and acute appendicitis with adjacent focal fluid collection likely reflecting a developing abscess measuring approximately 4.8 x 3.9 cm in size. There is a small amount of adjacent free intraperitoneal air concerning for perforation of the appendix. 2. Prominent abnormal wall thickening of the distal small bowel in the region of the distal ileum with mucosal enhancement and adjacent inflammatory stranding likely relating to a nonspecific enteritis. There is dilation of the more proximal small bowel which does raise concern for a distal small bowel obstruction. This also could relate to a reactive ileus. 3. Subcentimeter pulmonary nodules. Dictated by: Dictated on workstation # [id number]
[2021-10-09] MEDS ORDERED: PIPERACILLIN SODIUM/TAZOBACTAM 4.5 GM in NS (IVPB) 100 ML IV ONE (07:30)
[2021-10-09] MEDS ORDERED: morphine INJ 10 MG/ML 1ML (SYR OR VIAL) IVP STA (08:07)
[2021-10-09] MEDS ORDERED: morphine INJ 10 MG/ML 1ML (SYR OR VIAL) IV PRN (09:30)
[2021-10-09] MEDS ORDERED: ONDANSETRON 4 MG/2 ML (SDV) Z0FRAN IV PRN (09:30)
[2021-10-09] MEDS ORDERED: fentaNYL INJ 100 MCG/2 ML AMP ONE (09:46)
[2021-10-09] MEDS ORDERED: LIDOCAINE PF 2% 5 ML (XYLOCAINE) VIAL ONE (09:46)
[2021-10-09] MEDS ORDERED: ONDANSETRON 4 MG/2 ML (SDV) Z0FRAN ONE (09:46)
[2021-10-09] MEDS ORDERED: MIDAZOLAM 2 MG/2 ML (VERSED) VIAL ONE (09:46)
[2021-10-09] MEDS ORDERED: proPOfol 200 MG/20 ML (DIPRIVAN) VIAL IV ONE (09:46)
[2021-10-09] MEDS ORDERED: ROCURONIUM 50 MG/5 ML (ZEMURON) VIAL IV ONE (09:46)
[2021-10-09] MEDS ORDERED: SEVOFLURANE (ULTANE) 15 ML INHAL SOLN ONE ×2 (09:46→11:46)
[2021-10-09] MEDS ORDERED: SUCCINYLCHOLINE INJ 100 MG/5 ML SYR/VIAL ONE (09:47)
[2021-10-09] MEDS: LACTATED RINGERS 1,000 ML IV SCH ×2 (09:56→14:04)
[2021-10-09] MEDS ORDERED: HYDROmorphone 2 MG/ML VIAL (DILAUDID) IV ONE (10:15)
[2021-10-09] MEDS ORDERED: LIDOCAINE/EPI 1%-1:100,000 (XYLOCAINE) 20ML ONE (10:15)
[2021-10-09] MEDS ORDERED: ONDANSETRON 4 MG/2 ML (SDV) Z0FRAN IVP PRN (10:15)
--- NOTE | 2021-10-09 10:26 | Consultation - Surgery ---
History of Present Illness History of Present Illness Patient Consulted On(sunday/time) 10/09/21 10:21 Time Seen by Provider: 10:02 History of Present Illness Surgery asked to consult regarding possible perforated appendicitis. HPI per ED: Here with report of diffuse abdominal pain, nausea and vomiting with limited stool that has worsened over the last 3 days. This is his 3rd visit for the same. He has received hydration and labs on previous 2 visits but no imaging. Tried fluids at home yesterday but was unable to keep anything down. Feels like nothing is passing through. Did enema this morning and had small stool that was dark. He has taken Pepto-Bismol for his GI distress though. Denies cough or runny nose. Has had Covid vaccination. No reports of fever. Reports decreased urination and feeling weak. Timing/Duration: 3-4 Days Severity/Quality: Moderate, Cramping Location: Generalized Abdomen Radiation: No Radiation Activities at Onset: None Modifying Factors: Improves With Defecating; Worsens With Eating Associated Symptoms: No Back Pain, No Chest Pain, No Fever/Chills; Fatigue, Nausea/Vomiting; No Shortness of Air, No Swelling/Mass in Abdomen; Weakness When I spoke to pt he stated it started more upper abdomen on he went to ER was given morphine and pain went away. He woke up Sunday am and it was all across lower abdomen. Has not really been able to eat or drink, did vomit this am some jello he ate last night and has been nauseous since . Pain is 10 out of 10, never went away and never got better. Allergies and Home Medications Allergies Coded Allergies: No Known Drug Allergies (Unverified , 10/09/21) Patient Home Medication List Home Medication List Reviewed: Yes Hydrocodone Bit/Acetaminophen (Lortab 5 Mg Tablet) 1 Each Tablet, 1-2 TAB PO Q4-6HR PRN for PAIN Prescribed by: SHRAVAN OBRIEN on 05/10/17 1521 Ondansetron (Ondansetron Odt) 4 Mg Tab.rapdis, 4-8 MG PO Q6H PRN for NAUSEA/VOMITING Prescribed by: VIOLETA MORENO on 10/06/212044 Past Zdtldjy-[id number]-Acpqrn Hx Patient Social History Smoking Status: Never a Smoker Recent Hopitalizations: No Alcohol Use?: Yes Have you traveled recently?: No Immunizations Up To Date Date of Influenza Vaccine: Aug 05, 2021 Seasonal Allergies Seasonal Allergies: No Surgeries History of Surgeries: Yes (wisdom teeth removal) Surgeries: Orthopedic (foot surgery) Respiratory History of Respiratory Disorde: No Cardiovascular History of Cardiac Disorders: No Neurological History of Neurological Disord: No Reproductive System Hx Reproductive Disorders: No Sexually Transmitted Disease: No HIV/AIDS: No Gastrointestinal History of Gastrointestinal Di: No Musculoskeletal History of Musculoskeletal Dis: No Endocrine History of Endocrine Disorders: No HEENT History of HEENT Disorders: No Loss of Vision: Denies Hearing Impairment: Denies Psychosocial History of Psychiatric Problem: Yes Behavioral Health Disorders: Anxiety Blood Transfusions Adverse Reaction to a Blood Tr: No (N/A) Family Medical History Significant Family History: Diabetes (Grandmother), Hypertension (father) Review of Systems-General Constitutional: chills, fever, malaise EENTM: No blurred vision, No mouth swelling, No epistaxis Respiratory: No cough, No dyspnea on exertion, No hemoptysis Cardiovascular: No chest pain, No edema, No palpitations Gastrointestinal: abdominal pain; No hematemesis, No jaundice; loss of appetite, nausea, vomiting Genitourinary: decreased output, dysuria; No frequency, No hematuria Musculoskeletal: No joint pain, No joint swelling, No muscle pain Skin: No change in color, No change in hair/nails Psychiatric/Neurological: Anxiety; Denies Seizure, Denies Tremors Physical Exam-General Problems Physical Exam Vital Signs Vital Signs - First Documented 10/09/21 10/09/21 05:28 09:00 Temp 37.0 Pulse 120 Resp 20 B/P (MAP) 134/96 (109) Pulse Ox 95 O2 Delivery Room Air O2 Flow Rate 3.00 Capillary Refill : Less Than 3 Seconds General Appearance: WD/WN, mild distress Eyes: Bilateral Eye PERRL, Bilateral Eye Abnormal EOM HEENT: pharynx normal; No scleral icterus (R), No scleral icterus (L) Neck: non-tender, supple Respiratory: lungs clear, normal breath sounds, no respiratory distress, no accessory muscle use Cardiovascular: no murmur, tachycardia Gastrointestinal: soft, guarding (voluntary to light touch), tenderness (diffuse) Back: no CVA tenderness, no vertebral tenderness Extremities: no pedal edema, no calf tenderness Neurologic/Psychiatric: quill buncher and sorter II-XII nml as tested, alert, normal mood/affect, oriented x 3 Skin: normal color, warm/dry Lymphatic: no adenopathy (neck, axilla or groin) Data Review Labs Laboratory Tests 10/09/21 05:35: White Blood Count 19.4H, Red Blood Count 6.23H, Hemoglobin 18.3H, Hematocrit 53, Mean Corpuscular Volume 85, Mean Corpuscular Hemoglobin 29, Mean Corpuscular Hemoglobin Concent 34, Red Cell Distribution Width 12.3, Platelet Count 334, Mean Platelet Volume 9.3, Immature Granulocyte % (Auto) 1, Neutrophils (%) (Auto) 83H, Lymphocytes (%) (Auto) 7L, Monocytes (%) (Auto) 9, Eosinophils (%) (Auto) 0, Basophils (%) (Auto) 0, Neutrophils # (Auto) 16.1H, Lymphocytes # (Auto) 1.3, Monocytes # (Auto) 1.8H, Eosinophils # (Auto) 0.0, Basophils # (Auto) 0.0, Immature Granulocyte # (Auto) 0.1, Neutrophils % (Manual) 81, Lymphocytes % (Manual) 7, Monocytes % (Manual) 4, Band Neutrophils 8, Urine Color YELLOW, Urine Clarity CLEAR, Urine pH 6.5, Urine Specific [place] 1.015L, Urine Protein 1+H, Urine Glucose (UA) NEGATIVE, Urine Ketones 3+H, Urine Nitrite NEGATIVE, Urine Bilirubin 1+H, Urine Urobilinogen 1.0, Urine Leukocyte Esterase NEGATIVE, Urine RBC (Auto) TRACE-IH, Urine RBC RARE, Urine WBC NONE, Urine Crystals NONE, Urine Bacteria TRACE, Urine Casts NONE, Urine Mucus NEGATIVE, Urine Culture Indicated NO, Sodium Level 134L, Potassium Level 3.8, Chloride Level 98, Carbon Dioxide Level 23, Anion Gap 13, Blood Urea Nitrogen 6L, Creatinine 1.17, Estimat Glomerular Filtration Rate 75, BUN/Creatinine Ratio 5, Glucose Level 140H, Calcium Level 9.9, Corrected Calcium 9.5, Magnesium Level 2.1, Total Bilirubin 3.0H, Aspartate Amino Transf (AST/SGOT) 17, Alanine Aminotransferase (ALT/SGPT) 27, Alkaline Phosphatase 49, C-Reactive Protein High Sensitivity 23.38H, Total Protein 8.2, Albumin 4.5 10/09/21 08:05: Lactic Acid Level 1.22 10/09/21 09:10: SARS-CoV-2 RNA (RT-PCR) Not Detected Radiology Date of Exam:10/09/21 CT ABDOMEN/PELVIS W PROCEDURE: CT abdomen and pelvis with contrast. TECHNIQUE: Multiple contiguous axial images were obtained through the abdomen and pelvis after administration of intravenous contrast. Auto Exposure Controls were utilized during the CT exam to meet ALARA standards for radiation dose reduction. All CT scans use one or more of the following dose optimizing techniques: automated exposure control, MA and/or KvP adjustment based on patient size and exam type or iterative reconstruction. DATE: October 09, 2021. COMPARISON: None. INDICATION: 26-year-old male, abdominal pain, nausea, vomiting. FINDINGS: The visualized portions of the lung bases are clear. The heart is not enlarged. There Is no pericardial effusion. There is diffuse fatty infiltration of the liver. The liver is normal in size and contour. There is no identified liver lesion. The main, right, and left portal veins are patent. The gallbladder is unremarkable. There is no intrahepatic or extrahepatic bile duct dilation. The main pancreatic duct is not abnormally dilated. Unremarkable appearance of the pancreatic parenchyma. The spleen is not enlarged. The adrenal glands are unremarkable. Unremarkable appearance of the renal parenchyma. The urinary collecting systems are not distended. There is no identified renal or ureteral stone. There is wall thickening of the right anterior aspect of the urinary bladder. There is adjacent inflammatory stranding. There is abnormal wall thickening of distal small bowel with mucosal enhancement. There is prominent adjacent inflammatory stranding. There are dilated fluid-filled segments of small bowel measuring up to 3.3 cm in diameter. The wall thickening of small bowel is most notable at the level of the distal ileum. There is a gas and air fluid-filled structure on axial image 80 measuring 4.8 x 3.9 cm in axial extent with internal areas of calcification. This is not definitely within a bowel segment. Portions of this area could relate to the appendix, especially the small calcification on axial image 74 which may relate to relate to an appendicolith. There is a small amount of free intraperitoneal air on axial image 81 which can be confirmed on coronal image 22. There is no sizable volume free fluid in the abdomen or pelvis. There is no identified abnormally enlarged lymph node meeting CT size criteria for adenopathy. There is no identified acute bony abnormality. IMPRESSION: CT ABDOMEN AND PELVIS. 1. Findings concerning for an appendicolith and acute appendicitis with adjacent focal fluid collection likely reflecting a developing abscess measuring approximately 4.8 x 3.9 cm in size. There is a small amount of adjacent free intraperitoneal air concerning for perforation of the appendix. 2. Prominent abnormal wall thickening of the distal small bowel in the region of the distal ileum with mucosal enhancement and adjacent inflammatory stranding likely relating to a nonspecific enteritis. There is dilation of the more proximal small bowel which does raise concern for a distal small bowel obstruction. This also could relate to a reactive ileus. 3. Subcentimeter pulmonary nodules. Dictated by: Dictated on workstation # [id number] Dict: 10/09/21 0654 Trans: 10/09/21 0747 CVB [id number] Interpreted by: WENDY CASTRO MD Electronically signed by: WENDY CASTRO MD 10/09/21 0747 Assessment/Plan Assessment/Plan Assessment/Plan Acute Appendicitis possibly perforated Sepsis secondary to above Plan is NPO, IV fluids (at 200ml/hr), IV ABX, pain meds and anti-emetics as needed and to the OR for Laparoscopic Appendectomy possible open. I discussed the surgery with pt and family member; we will attempt to do this Laparoscopically with washout and probable drain placement. Depending on what it looks like in there we may need to do a larger incision and open the abdomen. We discussed risks and complications not limited to pain, bleeding, infection, scar, damage to bowel and need for further procedure. I did look at the CT myself and discussed findings with the pt; he does have appendicolith, thickened appendix and infla mmation. It is hard to tell how much air and fluid are outside the bowel, but it looks mostly contained down in loops of small bowel and not all over abdomen. All questions answered to their satisfaction. KEMAR COE DO Oct 09, 2021 10:26
[2021-10-09] MEDS: LACTATED RINGERS 1,000 ML IV PRN ×2 (10:27→11:22)
[2021-10-09] MEDS ORDERED: HYDROmorphone 2 MG/ML VIAL (DILAUDID) ONE (11:07)
[2021-10-09] MEDS ORDERED: KETOROLAC 30 MG/ML VIAL ONE (11:20)
[2021-10-09] MEDS ORDERED: GLYCOPYRROLATE 0.2 MG/ML (ROBINUL) 2 ML VIAL ONE (11:38)
[2021-10-09] MEDS ORDERED: NEOSTIGMINE 3 MG/3 ML VIAL ONE (11:38)
--- NOTE | 2021-10-09 12:06 | Progress Note-Post Operative ---
Post-Operative Progess Note Surgeon (s)/Media Marketing Coordinator (s) Surgeon KEMAR COE DO Media Marketing Coordinator: TERESA Zuleta Pre-Operative Diagnosis Acute appendicitis, possibly perforated Post-Operative Diagnosis Perforated appendicitis Procedure & Operative Findings Date of Procedure 10/09/21 Procedure Performed/Findings PROCEDURE: Laparoscopic appendectomy. COMPLICATIONS: None. INDICATIONS: The patient is a 26 year old male who has been having right lower quadrant abdominal pain. Patient's exam consistent with acute appendicitis. The patient understands the risks and benefits and wishes to proceed. Consent was signed on the chart. DESCRIPTION OF PROCEDURE: The patient was taken to the operating suite, prepped and draped in a sterile fashion. Timeout was performed. Local anesthetic was infiltrated just above the umbilicus and 11-blade scalpel was used to make a skin incision. Cautery was used to dissect down to the fascia and scored. Kochers were used to grasp and elevate it and the abdomen was then entered. A 0 Vicryl was placed in a [id number] fashion for closure at the end of the case. The balloon trocar was inserted into the abdomen and pneumoperitoneum was achieved. Under direct visualization of the laparoscope, a 5 mm trocar was placed in the suprapubic region and a 5 mm trocar was placed in the left lower quadrant. Appendix was not seen right away; there was purulent fluid throughout the abdomen and inflammation adhering the small bowel to the anterior abdominal wall. Suctioned up some of the purulent fluid for culture and then carefully took down the small bowel from abdominal wall. Gently with blunt dissection and hydro-dissection started teasing out the Cecum, Terminal ileum and appendix. There was fibrinous material on the anterior abdominal wall, pelvis, small bowel and the cecum. Multiple pictures were taken. More purulent fluid found with possible fecal material found as I was able to identify the appendix. Came across the mesoappendix with Ligasure; clamping and coagulating until appendix was only attached to the Cecum. In this fashion taking down the appendiceal artery as well. Once at the base an Endo-MOR 2.5 stapler was then fired; appeared to have good tissue and jacque across the base. It was then placed in an Endobag and removed through the 12 mm trocar site. The abdomen was then irrigated with 5L of normal saline and suctioned. No other pathology noted. Elected to place a 19 sinhala kenneth drain into abdomen and pulled out through left lateral 5mm port; sutured in place with 2-0 nylon. The abdomen was then desufflated and the trocars were removed. The 0 Vicryl placed at the beginning of the case was then tied closing the 12 mm fascial defect. The skin was then closed using 4-0 Monocryl in a subcuticular fashion. The abdomen was then washed and dried and Skin Affix was placed over the incisions. The patient tolerated the procedure well without any complications and was taken to the recovery room in stable condition. Anesthesia Type GET Estimated Blood Loss Estimated blood loss (mL): scant Specimens/Packing Specimens Removed appendix peritoneal fluid KEMAR COE DO Oct 09, 2021 12:06
[2021-10-09] MEDS: PIPERACILLIN/TAZO 4.5 GM/NS 100 ML IV SCH ×4 (14:04→21:16)
[2021-10-09] MEDS: HYDROcodone/APAP 5 MG/325 MG (LORTAB) TAB PO PRN ×2 (16:48→21:16)
[2021-10-09] MEDS: FAMOTIDINE 20MG/2ML IV (PEPCID) IV SCH (21:16)
[2021-10-10] MEDS: HYDROcodone/APAP 5 MG/325 MG (LORTAB) TAB PO PRN ×6 (01:32→23:19)
[2021-10-10] MEDS: LACTATED RINGERS 1,000 ML IV SCH ×2 (02:56→10:01)
[2021-10-10 04:34] VITALS: BP 92/51
[2021-10-10] MEDS: PIPERACILLIN/TAZO 4.5 GM/NS 100 ML IV SCH ×6 (05:40→23:19)
[2021-10-10 05:43] VITALS: BP 111/70
--- NOTE | 2021-10-10 07:30 | Progress Note - Surgery ---
LAURA GASCA MED STUDENT 10/10/21 0730: Subjective Date Seen by a Provider: Oct 10, 2021 Time Seen by a Provider: 06:15 Subjective/Events-last exam This is Brennen a 26 yo male with the chief complaint of sepsis and appendectomy yesterday. Pt was laying in bed asleep upon entering the room. Pt states that his ELISE drain was just emptied this morning. Minimal bloody serous fluid present during exam. Pt stated that drained fluid yesterday was purulent and bloody. Pt is on a clear liquid diet and drinking water well. He states that his RLQ pain is a 4/10 but intensifies to a 10/10 following any form of movement. He is getting up and walking to the bathroom to urinate. Pt relays no issues with urination. Pt denies having a BM. Review of Systems General: No Appetite (clear liquid diet) Gastrointestinal: Abdominal Pain (RLQ worse with movement); No: Nausea, Vomiting Focused Exam Lactate Level 10/09/21 08:05: Lactic Acid Level 1.22 Time of Focused Exam: 06:15 Respiratory: Chest Non Tender, Lungs Clear, Normal Breath Sounds, No Accessory Muscle Use, No Respiratory Distress Cardiovascular: Regular Rate, Rhythm, No Edema, No Gallop, No Murmur, Normal Peripheral Pulses Skin: normal color, warm/dry, other (incision sights appears clean and dry, ELISE drain containing minimal bloody serous fliud) Objective Exam Vital Signs Date Time Temp Pulse Resp B/P (MAP) Pulse Ox O2 Delivery O2 Flow Rate FiO2 10/10/21 05:43 111/70 (84) 10/10/21 04:34 36.8 70 16 92/51 (65) 96 Room Air 10/09/21 23:50 37.2 71 22 104/67 (79) 96 Room Air 10/09/21 20:59 Room Air 10/09/21 19:40 36.9 72 24 100/64 (76) 95 Room Air 10/09/21 16:00 36.7 79 22 101/64 (76) 95 Room Air 10/09/21 13:24 37.4 74 20 99/66 (77) 94 Room Air 10/09/21 13:05 Room Air 10/09/21 13:00 15 103/66 (78) 92 Room Air 10/09/21 12:45 16 107/67 (80) 92 OxyMask 2 10/09/21 12:35 OxyMask 2 10/09/21 12:35 20 103/68 (80) 94 OxyMask 2 10/09/21 12:24 OxyMask 10/09/21 12:20 16 108/72 (84) 96 OxyMask 4 10/09/21 12:09 35.6 13 121/77 (92) 97 OxyMask 8 10/09/21 12:09 OxyMask 7 10/09/21 10:10 38.4 97 20 125/85 (98) 100 Nasal Cannula 3.00 10/09/21 09:36 94 Nasal Cannula 3.00 10/09/21 09:35 Nasal Cannula 3.00 10/09/21 09:00 37.0 100 20 121/76 94 Nasal Cannula 3.00 I & O 10/10/21 07:00 Intake Total 6380 ml Output Total 3850 ml Balance 2530 ml Capillary Refill : Less Than 3 SecondsLess Than 3 Seconds General Appearance: WD/WN, Mild Distress (RLQ pain with movement) HEENT: PERRL/EOMI, Pharynx Normal Neck: Normal Inspection, Non Tender, Supple Respiratory: Chest Non Tender, Lungs Clear, Normal Breath Sounds, No Accessory Muscle Use, No Respiratory Distress Cardiovascular: Regular Rate, Rhythm, No Edema, No Gallop, No Murmur, Normal Peripheral Pulses Gastrointestinal: distended, tenderness (RLQ pain worse with palpation ) Extremity: Normal Inspection, Non Tender, No Calf Tenderness, No Pedal Edema Neurologic/Psychiatric: Alert, Oriented x3, Normal Mood/Affect Skin: Normal Color, Warm/Dry, Other (incision sights appears clean and dry, ELISE drain containing minimal bloody serous fliud) Lymphatic: No Adenopathy (cervical or suprclavicular) Results Lab Laboratory Tests 10/09/21 08:05: Lactic Acid Level 1.22 10/09/21 09:10: SARS-CoV-2 RNA (RT-PCR) Not Detected Microbiology 10/09/21 Gram Stain - Final, Resulted 10/09/21 Anaerobic Culture, Resulted Pending 10/09/21 Surgical Culture - Preliminary, Resulted Pseudomonas aeruginosa Gram Negative Preet 10/09/21 MRSA Screen - Final, Complete MRSA not isolated Assessment/Plan Assessment/Plan Assessment/Plan Assessment: Acute Appendicitis- resolved with appendectomy 10/09 Sepsis secondary to above RLQ pain leukocytosis- WBC of 19.4 on 10/10 Plan: continue IV antibiotics continue pain medications continue clear liquid diet encourage ambulation encourage IS use KEMAR COE DO 10/10/21 1555: Subjective Time Seen by a Provider: 12:58 Subjective/Events-last exam Pt seen and examined, states he has pretty severe pain today. He has not really been walking, but is passing some gas. Review of Systems General: Fatigue, Malaise Pulmonary: No Dyspnea, No Cough Cardiovascular: No: Chest Pain, Palpitations Gastrointestinal: Abdominal Pain (RLQ worse with movement); No: Nausea, Vomiting Objective Exam General Appearance: WD/WN, Mild Distress (RLQ pain with movement) Respiratory: Lungs Clear, Normal Breath Sounds, No Accessory Muscle Use, No Respiratory Distress Cardiovascular: Regular Rate, Rhythm, No Murmur Gastrointestinal: distended, tenderness (RLQ pain worse with palpation ), other (Incisions are c/d/i, ELISE drain has mostly serous, scant bloody and looks like some fibrinous material in tube) Assessment/Plan Assessment/Plan Assessment/Plan S/P Lap appendectomy 10/09 Sepsis secondary to above Plan: Encourage ambulation (in the halls) will get him IS to use, increase to soft diet, continue IV antibiotics, continue pain medications Supervisory-Addendum Brief Verification & Attestation Participated in pt care: history, MDM, physical Personally performed: exam, history, MDM, supervision of care Care discussed with: Medical Student Procedures: n/a Verification and Attestation of Medical Student E/M Service A medical student performed and documented this service. I then reviewed and verified all information documented by the medical student and made modifications to such information, when appropriate. I personally performed a physical exam, medical decision making and then discussed any differences between the notes and made revisions as necessary to create one note. Kemar Coe , 10/10/21 , 15:54 LAURA GASCA MED STUDENT Oct 10, 2021 07:30 KEMAR COE DO Oct 10, 2021 15:55
[2021-10-10 08:00] VITALS: BP 102/62
[2021-10-10] MEDS ORDERED: ONDA4TAB11 PO (08:23)
[2021-10-10] MEDS: FAMOTIDINE 20MG/2ML IV (PEPCID) IV SCH ×2 (08:28→20:23)
--- NOTE | 2021-10-10 10:37 | Anesthesia-General Post-Op ---
General Patient Condition Mental Status/LOC: Same as Preop Cardiovascular: Satisfactory Nausea/Vomiting: Absent Respiratory: Satisfactory Pain: Controlled Complications: Absent Post Op Complications Complications None Follow Up Care/Instructions Patient Instructions None needed. Anesthesia/Patient Condition Patient Condition Patient is doing well, no complaints, stable vital signs, no apparent adverse anesthesia problems. No complications reported per nursing. SHALINI HAYNES CRNA Oct 10, 2021 10:37
[2021-10-10 11:55] VITALS: BP 126/83
[2021-10-10 15:56] VITALS: BP 107/69
[2021-10-10 19:52] VITALS: BP 112/74
[2021-10-11] MEDS: LACTATED RINGERS 1,000 ML IV SCH ×2 (00:05→04:53)
[2021-10-11 00:50] VITALS: BP 120/75
[2021-10-11 04:53] VITALS: BP 108/72
[2021-10-11] MEDS: PIPERACILLIN/TAZO 4.5 GM/NS 100 ML IV SCH ×2 (05:57)
[2021-10-11 08:00] VITALS: BP 127/83
[2021-10-11] MEDS: FAMOTIDINE 20MG/2ML IV (PEPCID) IV SCH (08:14)
--- NOTE | 2021-10-11 08:15 | Progress Note - Surgery ---
LAURA GASCA MED STUDENT 10/11/21 0815: Subjective Date Seen by a Provider: Oct 11, 2021 Time Seen by a Provider: 07:15 Subjective/Events-last exam This is Brennen a 26 yo male with the chief complaint of appendectomy and sepsis. Pt was laying in bed asleep upon entering the room. He stated that his abdominal pain has improved since yesterday. Today he put the pain at a 1/10 at rest and a 4/10 with movement. Pain in primarily in the lower quadrants bilaterally. He stated that he was able to walk the halls a little yesterday but that the IV pole made it difficult. Pt expressed concern for constipation. He stated that he feels as if he needs to have a BM but that he strains with pushing and requested a stool softener this morning. ELISE drain contained abour 85cc of nonbloody serous fluid. Pt was changed to a soft food diet this morning with nursing staff. Review of Systems General: Appetite (increased hunger) Cardiovascular: No: Edema Gastrointestinal: Abdominal Pain (RLQ and LLQ), Constipation; No: Nausea, Vomiting Genitourinary: No Dysuria, No Hematuria Focused Exam Lactate Level 10/09/21 08:05: Lactic Acid Level 1.22 Time of Focused Exam: 07:15 Respiratory: Chest Non Tender, Lungs Clear, Normal Breath Sounds, No Accessory Muscle Use, No Respiratory Distress Cardiovascular: No Edema, No Gallop, No Murmur, Normal Peripheral Pulses, Bradycardia (HR of 55 ) Skin: normal color, warm/dry, other (incision sites appeared clean and dry) Objective Exam Vital Signs Date Time Temp Pulse Resp B/P (MAP) Pulse Ox O2 Delivery O2 Flow Rate FiO2 10/11/21 08:00 37.0 58 18 127/83 (98) 96 Room Air 10/11/21 04:53 36.9 55 16 108/72 (84) 96 Room Air 10/11/21 00:50 37.0 53 16 120/75 (90) 96 Room Air 10/10/21 20:23 Room Air 10/10/21 19:52 36.8 69 19 112/74 (87) 96 Room Air 10/10/21 19:21 98 Room Air 10/10/21 15:56 37.1 60 20 107/69 (82) 97 Room Air 10/10/21 11:55 36.6 51 20 126/83 (97) 98 Room Air 10/10/21 08:33 Room Air 10/10/21 08:29 Room Air 0.00 I & O 10/11/21 07:00 Intake Total 2460 ml Output Total 240 ml Balance 2220 ml Capillary Refill : Less Than 3 SecondsLess Than 3 Seconds General Appearance: No Apparent Distress, WD/WN HEENT: PERRL/EOMI, Pharynx Normal Neck: Normal Inspection, Non Tender, Supple Respiratory: Chest Non Tender, Lungs Clear, Normal Breath Sounds, No Accessory Muscle Use, No Respiratory Distress Cardiovascular: No Edema, No Gallop, No Murmur, Normal Peripheral Pulses Gastrointestinal: distended, tenderness (RLQ pain worse with palpation ) Extremity: Normal Capillary Refill, Normal Inspection, Non Tender, No Calf Tenderness, No Pedal Edema Neurologic/Psychiatric: Alert, Oriented x3, No Motor/Sensory Deficits, Normal Mood/Affect Skin: Normal Color, Warm/Dry, Other (incision sights appears clean and dry, ELISE drain containing nonbloody serous fliud) Lymphatic: No Adenopathy (cervical or suprclavicular) Results Lab Microbiology 10/09/21 Gram Stain - Final, Resulted 10/09/21 Anaerobic Culture, Resulted Pending 10/09/21 Surgical Culture - Preliminary, Resulted Pseudomonas aeruginosa Escherichia coli 10/09/21 MRSA Screen - Final, Complete MRSA not isolated 10/09/21 Blood Culture - Preliminary, Resulted No growth Assessment/Plan Assessment/Plan Assessment/Plan Assessment: S/P Lap appendectomy 10/09 Sepsis secondary to above RLQ and LLQ abdominal pain- improving constipation Bradycardia- HR of 55 on 10/11 Plan: Encourage ambulation (in the halls) encourage IS use soft food diet- discussed with nursing staff continue pain medications as needed stool softener KEMAR COE DO 10/11/21 1156: Subjective Time Seen by a Provider: 11:48 Subjective/Events-last exam Pt seen and examined, states he is doing better today. Less pain, had BM and ate a soft meal with no problems; he is asking if he can go home Review of Systems General: No Chills, No Night Sweats Pulmonary: No Dyspnea, No Cough Cardiovascular: No: Chest Pain, Edema Gastrointestinal: Abdominal Pain (b/l LQ); No: Nausea, Vomiting Objective Exam General Appearance: No Apparent Distress HEENT: PERRL/EOMI Respiratory: Lungs Clear, Normal Breath Sounds, No Accessory Muscle Use, No Respiratory Distress Cardiovascular: Regular Rate, Rhythm, No Murmur Gastrointestinal: soft, tenderness (better than yesterday), other (incision appears clean and dry, ELISE drain containing nonbloody serous fliud) Assessment/Plan Assessment/Plan Assessment/Plan S/P Lap appendectomy 10/09 Plan: D/C IV and D/C home Supervisory-Addendum Brief Verification & Attestation Participated in pt care: history, MDM, physical Personally performed: exam, history, MDM, supervision of care Care discussed with: Medical Student Procedures: n/a Verification and Attestation of Medical Student E/M Service A medical student performed and documented this service. I then reviewed and verified all information documented by the medical student and made modifications to such information, when appropriate. I personally performed a physical exam, medical decision making and then discussed any differences between the notes and made revisions as necessary to create one note. Kemar Coe , 10/11/21 , 11:56 LAURA GASCA MED STUDENT Oct 11, 2021 08:15 KEMAR COE DO Oct 11, 2021 11:56
[2021-10-11] MEDS: HYDROcodone/APAP 5 MG/325 MG (LORTAB) TAB PO PRN (10:40)
[2021-10-11 11:48] VITALS: BP 117/77
[2021-10-11] MEDS ORDERED: ACHD5005 PO (11:57)
--- NOTE | 2021-10-11 11:59 | Discharge Inst-Surgical ---
Discharge Inst-Surgical Depart Medication/Instructions New, Converted or Re-Newed RX: Transmitted to Pharmacy Patient Instructions Follow up Appt: Make appointment for 1 week. [phone] Instructions: No lifting greater than 20 pounds. No strenuous activity. May shower in 24 hours, no tub bath or soaking. Use incentive spirometer at home as directed. No Smoking Skin/Wound Care: May remove bandages in am. You need to leave the Dermabond on incision it will fall off on it's own. Symptoms to Report: Appetite Changes, Extremity Discoloration, Numbness/Tingling, Swelling Increased, Bleeding Excessive, Eyesight Changes, Pain Increased, Urine Color Change, Constipation(Persistent), Fever over 101 degree F, Pain/Pressure in chest, Urinating Difficulty, Cough Up/Vomit Blood, Heart Beat Irreg/Pounding, Pain/Pressure in jaw, Cramps in feet or legs, Lightheadedness, Pain/Pressure in shoulder, Diarrhea(Persistent), Memory Changes Suddenly, Questions/Concerns, Weight gain consecutive days, Dizziness/Fainting, Nausea/Vomiting, Shortness of Breath, Weight gain over 2 pounds If questions or concerns contact your physician Or seek help at emergency department. Activity Activity as Tolerated: Yes Activity Instructions: Avoid Stress to Incision Driving Instructions: No Driving/Refer to Dr. Eason Discharge Diet: No Restrictions Diet After 24 Hours: Clear Liquid if Nauseous If Any Problems/Questions/Issu: Contact Your Physician, Go to Emergency Room Skin/Wound Care Infection Signs and Symptoms: Increased Redness, Foul Odor of Wound, Increased Drainage, Skin Itchy or Has a Rash, Increased Swelling, Temperature Above 101 F Wound Care Comment: ELISE drain teaching, record output every 24 hours, teach how to drain Bathing Instructions: Shower Stitches/Lucila/Dermabond Dis: Dermabond KEMAR COE DO Oct 11, 2021 11:59
[2021-10-11] MEDS ORDERED: HYDR-3817 PO (13:09)
[2021-10-11 16:12] VITALS: BP 117/77
== END 2021-10-11 16:12 | disposition home or self-care (01) | DRG 853 ==
LOC: EDUNIT# 05:22 → ER 05:24 → 4TH 08:24
PROVIDERS: ADMIT Surgery; ATTEND Surgery
PROC: 0DTJ4ZZ Resection of Appendix, Percutaneous Endoscopic Approach (ICD-10-PCS; principal; 2021-10-09 10:31)
DX: A41.9 Sepsis, unspecified organism (principal); K35.32 Acute appendicitis with perforation, localized peritonitis, and gangrene, without abscess; Z79.899 Other long term (current) drug therapy; D72.829 Elevated white blood cell count, unspecified; Z20.822 Contact with and (suspected) exposure to COVID-19; K59.00 Constipation, unspecified; R00.1 Bradycardia, unspecified; F41.9 Anxiety disorder, unspecified; R91.1 Solitary pulmonary nodule
CPT/HCPCS: 36415; 74177; 80053; 81000; 83605; 83735; 85007; 85027; 86141; 87040; 87070; 87075; 87076; 87077; 87081; 87186; 87205; 87636

== ENCOUNTER → 2021-12-19 | Outpatient (CLI) | payer BC ==
[~2021-12-19] MED LIST changes: +HYDR-3817 PO
--- NOTE | 2021-12-19 10:05 | Diagnostic Imaging Report ---
EXAMINATION: CT CHEST WO. TECHNIQUE: Multiple contiguous axial images were obtained through the chest without the use of intravenous contrast. All CT scans use one or more of the following dose optimizing techniques: automated exposure control, MA and/or KvP adjustment based on a patient size and exam type, or iterative reconstruction. INDICATION: Pulmonary nodule, followup. COMPARISON: CT chest of 10/09/2021. FINDINGS: Lungs and airway: Lungs are clear. No pneumonia or edema. No suspicious pulmonary nodules. Pleura: No pleural effusion or pneumothorax. Heart and mediastinum: Thyroid is normal. No supraclavicular or axillary lymphadenopathy. Heart is normal in size without pericardial effusion. No mediastinal or hilar lymphadenopathy. Normal caliber thoracic aorta. Upper abdomen: Diffuse hepatic steatosis. No acute abnormality in the upper abdomen. Musculoskeletal: No worrisome focal osseous lesions. IMPRESSION: 1. No pulmonary nodules. The previously described pulmonary nodules from the CT chest have resolved indicating these were due to an infectious/inflammatory process. 2. Diffuse hepatic steatosis. Dictated by: Dictated on workstation # [id number]
== END ==
LOC: RAD 08:22
PROVIDERS: ATTEND Family Medicine
DX: K76.0 Fatty (change of) liver, not elsewhere classified (principal)
CPT/HCPCS: 71250